=== PATIENT | male | born 1960 | race Two or more races ===

== ENCOUNTER → 2025-01-21 | Outpatient (CLI) | payer OTHER, SELFPAY ==
--- NOTE | 2025-01-21 09:00 | XR_ITS ---
Examination: Esophagram standard Upright PA chest single view Upright soft tissue lateral neck single view Fluoroscopy 13 spot fluoroscopic films of the esophagus Date and time: January 21, 2025 0908 hours INDICATIONS: Difficulty swallowing heartburn reflux 3 months. TECHNIQUE AND FINDINGS: Upright PA chest normal heart size lungs are clear Soft tissue lateral neck moderate degenerative disc disease C5-C6 normal epiglottis Patient swallowed thin barium with 16 spot fluoroscopic films of the esophagus Primary peristaltic esophageal waves Numerous secondary and tertiary esophageal contractions Moderate continuous gastroesophageal reflux. Moderate sliding esophageal hernia. There is no stricture the gastroesophageal junction IMPRESSION: Significant esophageal dysmotility Moderate continuous gastroesophageal reflux Fluoroscopy 0.8 minute 13 spot fluoroscopic films of the esophagus
== END | disposition home or self-care (01) ==
PROVIDERS: PCP Family Medicine; Referring Provider Specialist; Visit Provider Specialist
DX: K21.9 Gastro-esophageal reflux disease without esophagitis (principal)
CPT/HCPCS: 74220; A4649

== ENCOUNTER → 2025-02-26 | Outpatient (CLI) | payer OTHER, SELFPAY ==
[2025-02-26 08:36] LABS: Thyroid Stimulating Hormone 1.09 uIU/mL (0.55-4.78)
[2025-03-03 06:34] LABS: ANA Screen, IFA NEGATIVE (NEGATIVE)
== END | disposition home or self-care (01) ==
PROVIDERS: PCP Family Medicine; Referring Provider Specialist; Visit Provider Specialist
DX: E78.9 Disorder of lipoprotein metabolism, unspecified (principal)
CPT/HCPCS: 36415; 84443; 86038

== ENCOUNTER 2025-03-10 09:50 | Day surgery (SDC) | payer OTHER, SELFPAY ==
[2025-03-10] VITALS (9 sets, daily range): BP systolic 133–182; BP diastolic 80–101; PULSE 60–96; RESP 14–22; TEMP 36.6–36.7; O2SAT 96–100; BMI 28.6
[2025-03-10] MEDS: BENZOCAINE 20% (Hurricaine) SPRAY 1 DOSE TOP (11:39)
[2025-03-10] MEDS: SODIUM CHLORIDE 0.9% 500 ML 500 ML 20 ML IV (11:39)
[2025-03-10] MEDS: fentaNYL CIT INJ 50 mCg/ML AMP 2ML (ASD USE ONLY) IVP (11:46)
[2025-03-10] MEDS: MIDAZOLAM INJ 1 MG/ML VIAL 2 ML (ASD USE ONLY) 2 MG IVP (11:46)
== END 2025-03-10 12:45 | disposition home or self-care (01) ==
PROVIDERS: PCP Physician Assistant; Referring Provider Specialist; Visit Provider Specialist
PROC: (CPT 43239; principal; 2025-03-10 11:00)
DX: K22.2 Esophageal obstruction (principal); K22.10 Ulcer of esophagus without bleeding; R93.3 Abnormal findings on diagnostic imaging of other parts of digestive tract; I10 Essential (primary) hypertension; N40.0 Benign prostatic hyperplasia without lower urinary tract symptoms; Z79.899 Other long term (current) drug therapy; K29.50 Unspecified chronic gastritis without bleeding
CPT/HCPCS: 43248; 43239; A4649; C1769; J1200; J2250; J3010; J7999; A9270